=== PATIENT | female | born 1985 | race Caucasian/White ===

== ENCOUNTER → 2020-12-01 | Outpatient (CLI) | payer OTHER ==
--- NOTE | 2020-12-07 08:47 | ECWPNPC ---
PATIENT NAME: MICHELLE HSU : 1985 GENDER: FEMALE VISIT DATE: 12/01/2020 DISCHARGE DATE: 12/01/20 1406 VISIT LOCKED DATE TIME: PHYSICIAN: MARY JANSEN RESOURCE: MARY JANSEN REASON FOR APPOINTMENT 1. W/C SHOULDER/CRPS HISTORY OF PRESENT ILLNESS DEPRESSION SCREENING: PHQ-2 (2015 EDITION) LITTLE INTEREST OR PLEASURE IN DOING THINGS?NOT AT ALL FEELING DOWN, DEPRESSED, OR HOPELESS?NOT AT ALL TOTAL SCORE0 GENERAL: 35-YEAR-OLD FEMALE BEING REFERRED BY DR. PARKER, ORTHOPEDIC SURGERY FOR EVALUATION OF LEFT UPPER EXTREMITY COMPLEX REGIONAL PAIN SYNDROME STATUS POST LEFT SHOULDER INJURY AND SURGERY. THIS IS A WORK RELATED INJURY. PATIENT WAS WALKING DOWN STEPS AN EMPLOYEE AT [employer] ON April AND SLIPPED CATCHING HERSELF WITH HER LEFT ARM ON THE RAILING. PATIENT HAS BEEN EXPERIENCING CONSTANT BURNING STABBING AND SHOOTING PAIN IN THE LEFT ARM AND SHOULDER SINCE INJURY. REPORTS NO IMPROVEMENT POST SURGERY. SHE IS RIGHT HAND DOMINANT. REPORTS SIGNIFICANT REDUCTION IN ABILITY TO DO ACTIVITIES OF DAILY LIVING WITH HER FAMILY AND ROUTINE CHORES AROUND THE HOUSE. SHE IS DEPRESSED AND WEEPY TODAY DUE TO HER POOR ACTIVITY TOLERANCE DUE TO SEVERE UNCONTROLLED PAIN. FINDS CURRENT MEDICATION MINIMALLY EFFECTIVE. CONTINUES WITH PHYSICAL THERAPY THAT SHE BEGAN 4 WEEKS AFTER SURGERY. REPORTS HYPERSENSITIVITY TO LIGHT TOUCH OVER HER LEFT ARM. REPORTS SWELLING IN HER HANDS AND REPORTS THAT LEFT HAND IS VERY COLD FREQUENTLY EVEN DESPITE ATTEMPTS TO WARM IT UP. REPORTS SKIN COLOR CHANGES OVER HER LEFT ARM PERIODICALLY.- -. FALL RISK SCREENING: SCREENING : NO FALLS REPORTED IN THE LAST YEAR , : NO FALLS REPORTED IN THE LAST YEAR. PAIN SCREENING: PATIENT HAS A COMPLAINT OF ACUTE OR CHRONIC PAIN :YES LOCATION OF PAIN:LEFT SHOULDER INTENSITY OF PAIN (SCALE OF 1 TO 10):8 WHAT DOES YOUR PAIN FEEL LIKE:BURNING, STABBING, SHOOTING DURATION:CONTINOUS, CONSTANT, ALL DAY PAIN IS INCREASED BY:OTHERS DOES MATTER WHAT SHE DOES IT HURTS PAIN IS DECREASED BY:OTHERS HEAT NURSING NOTE: - - -. PAIN CENTER INTAKE QUESTIONS: DO YOU HAVE A HISTORY OF MRSA? :NO DO YOU TAKE A BLOOD THINNERS? :NO DO YOU HAVE ANY BLEEDING DISORDERS? :NO ANY NEW NUMBNESS OR WEAKNESS IN YOUR LEGS OR ARMS? :YES LEFT HAND HAS NUMBNESS ANY PACEMAKER,DEFIBRILLATOR, OR DORSAL COLUMN STIMULATOR? :NO DO YOU HAVE ANY RASHES OR OPEN SORES? :NO ARE YOU ALLERGIC TO IV DYE? :NO ARE YOU DIABETIC? :NO ANY NEW PROBLEMS WITH YOUR MEDICATIONS? :NO HAVE YOU RECEIVED A VACCINE IN THE PAST 30 DAYS? :NO DO YOU PLAN TO RECEIVE A VACCINE IN THE NEXT 21 DAYS? :NO DO YOU NEED ANY PRESCRIPTION? :NO DO YOU TAKE ANY IMMUNOSUPPRESSIVE MEDICATIONS? :NO CURRENT MEDICATIONS TAKING LEXAPRO 5 MG TABLET 1 TABLET ORALLY ONCE A DAY TAKING BACLOFEN 20 MG TABLET 1 TABLET ADMINISTER WITHOUT REGARDS TO MEALS NEEDED ORALLY TWICE A DAY TAKING GABAPENTIN 400 MG CAPSULE 1 CAPSULE ORALLY ONCE A DAY TAKING TRAMADOL HCL 50 MG TABLET 1 TABLET NEEDED ORALLY ONCE A DAY NOT-TAKING CELECOXIB 200 MG CAPSULE 1 CAPSULE WITH FOOD ORALLY ONCE A DAY NOT-TAKING MELOXICAM 15 MG TABLET 1 TABLET ORALLY ONCE A DAY NOT-TAKING LEXAPRO 5 MG TABLET 1 TABLET ORALLY ONCE A DAY NOT-TAKING OXYCODONE-ACETAMINOPHEN 5-325 MG TABLET 1 TABLET NEEDED ORALLY EVERY 6 HOURS PRN NOT-TAKING PERCOCET 5-325 MG TABLET 1 TABLET NEEDED ORALLY EVERY 6 HRS MEDICATION LIST REVIEWED AND RECONCILED WITH THE PATIENT PAST MEDICAL HISTORY HEADACHES CHRONIC SHOULDER PAIN ALLERGIES CELEBREX: NAUSEA/VOMITING SURGICAL HISTORY C SECTION 2009 C- SECTION 2014 TONSILECTOMY 2005 DNC 2008 NOSE DONE 2016 FAMILY HISTORY FATHER: ALIVE MOTHER: SIBLINGS: ALIVE SON(S): ALIVE DAUGHTER(S): ALIVE 7 BROTHER(S) , 6 SISTER(S) . 1 SON(S) , 1 DAUGHTER(S) - HEALTHY. 1 BOTHER W/BRAIN CANCER. SOCIAL HISTORY GENERAL: TOBACCO USE ARE YOU A:CURRENT SMOKER ARE YOU INTERESTED IN QUITTING?THINKING ABOUT QUITTING COUNSELED THE PATIENT ON SMOKING CESSATION, EDUCATION [id number]/01/2021 HOW MANY CIGARETTES A DAY DO YOU SMOKE?6-10 LATEX QUESTIONNAIRE LATEX ALLERGY : HAVE YOU EVER DEVELOPED ANY TYPE OF REACTION AFTER HANDLING LATEX PRODUCTS SUCH RUBBER GLOVES, CONDOMS, DIAPHRAGMS, BALLOONS, SOCKS, OR UNDERWEAR?NO LATEX ALLERGY : HAVE YOU EVER DEVELOPED ANY TYPE OF REACTION DURING OR AFTER DENTAL APPOINTMENT, VAGINAL/RECTAL EXAMINATION, SURGICAL PROCEDURE, OR ANY OTHER EXPOSURE?NO LATEX RISK : HAVE YOU EVER HAD ANY DIFFICULTY BREATHING OR HIVES AFTER EATING OR HANDLING ANY FRUITS, OR VEGETABLES; SUCH KIWI, BANANAS, STONE FRUITS, OR CHESTNUTSNO LATEX RISK : DO YOU HAVE A PREVIOUS PERSONAL HISTORY OF MORE THAN NINE SURGERIES, SPINA BIFIDA, OR REPEATED CATHERIZATIONS? NO LATEX RISK : ARE YOU FREQUENTLY EXPOSED TO LATEX PRODUCTS IN YOUR OCCUPATION?NO DATE ASKED : 12/01/2020 ALCOHOL USE: NO. RECREATIONAL DRUG USE DRUG USE?NO LANGUAGE LANGUAGES SPOKEN:ARMENIAN LEARNING BARRIERS / SPECIAL NEEDS CHANGE FROM LAST VISIT?NO BARRIERS TO LEARNING?NO HEARING IMPAIRED?NO VISION IMPAIRED?YES :CORRECTIVE LENSES COGNITIVELY IMPAIRED?NO READINESS TO LEARN?YES LEARNING PREFERENCES?YES :DEMONSTRATION/VERBAL INSTRUCTION LEARNING CAPABILITIES PRESENT?YES EMOTIONAL BARRIERS?NO SPECIAL DEVICES?NO RETAIL GENERAL MANAGER NEEDED?NO DOMESTIC VIOLENCE DO YOU FEEL SAFE IN YOUR ENVIRONMENT?YES MARITAL STATUS: . HOSPITALIZATION/MAJOR DIAGNOSTIC PROCEDURE CHILD REVIEW OF SYSTEMS CONSTITUTIONAL: ANY RECENT FEVER NO . CHILLS NO . WEIGHT CHANGE OF UNKNOWN REASONS NO . MUSCULOSKELETAL: ANY UNUSUAL JOINT PAIN OR SWELLING NOT MENTIONED NO . SYSTEMIC LUPUS NO . ANY NEUROMUSCULAR DISORDER NOT MENTIONED NO . LYME DISEASE NO . GASTROENTEROLOGY: ANY NEW CHANGE IN BOWEL CONTROL? NO . HISTORY OF LIVER DISORDER NOT MENTIONED NO . HISTORY OF UNUSUAL ABDOMINAL PAIN OR CRAMPING NOT MENTIONED NO . NO CONSTIPATION. GENITOURINARY: ANY NEW CHANGE IN BLADDER CONTROL? NO . ANY RENAL/KIDNEY CONDITON NOT MENTIONED NO . NEUROLOGY: HISTORY OF TBI NOT MENTIONED NO . OTHER NEW NUMBNESS OR PAIN PATTERNS NOT MENTIONED NO . NEW ONSET DIZZINESS OR NEUROLOGICAL CHANGES NOT MENTIONED NO . HISTORY OF SEVERE HEADACHES NOT MENTIONED NO . HISTORY OF STROKE OR NEUROLOGICAL DISORDER NOT MENTIONED NO . CARDIOLOGY: HEART SURGERY NO . CONGESTIVE HEART FAILURE/FLUID OVERLOAD NOT MENTIONED NO . HISTORY OF CHEST PAIN,IRREGULAR HEART BEAT NOT MENTIONED NO . RESPIRATORY: SHORTNESS OF BREATH ON EXERTION, WHEEZES, UNUSUAL COUGH NOT MENTIONED NO . ENDOCRINOLOGY: ADRENAL GLAND OR THYROID DISORDERS NOT MENTIONED NO . UNUSUAL URINATION, DIZZINESS OR LETHARGY NOT MENTIONED NO . VITAL SIGNS WT 156 LBS, HT 5'6, BMI 30.46 INDEX, BP 133/81 MM HG, HR 83 /MIN, RR 18 /MIN, TEMP 98.1 F, OXYGEN SAT % 97%, SAFE IN ENV? (Y/N) YEST.KIM ALEJANDRO. EXAMINATION GENERAL EXAMINATION: GENERALNO ACUTE DISTRESS, WELL NOURISHED AND HYDRATED. PSYCHWEEPY, FLAT AFFECT, DEPRESSED. NECK:NO LYMPHADENOPATHY, SUPPLE, NO THYROMEGALLY. LUNGS:CLEAR TO AUSCULTATION BILATERALLY, NO WHEEZES, RHONCHI, RALES. HEART:NO MURMURS, REGULAR RATE AND RHYTHM. ABDOMEN:SOFT, NON-TENDER, NO ORGANOMEGALY, BOWEL SOUNDS ARE NORMAL. MUSCULOSKELETAL:WEAK INFORMATION TECHNOLOGY SPECIALIST STRENGTH LEFT ARM . MOTOR STRENGTH LEFT ARM 3/5. WEAKNESS AGAINST RESISTANCE LEFT ARM AT LESS THAN 40. ABDUCTION LEFT ARM IS REDUCED TO 128. MARKED HYPERSENSITIVITY TO LIGHT TOUCH OVER LEFT UPPER EXTREMITY.. 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 EXTREMITY - G90.512 (PRIMARY) NEUROPATHIC PAIN OF LEFT SHOULDER - M79.2 TREATMENT NEUROPATHIC PAIN OF LEFT SHOULDER INCREASE BACLOFEN TABLET, 20 MG, 1 TABLET ADMINISTER WITHOUT REGARDS TO MEALS NEEDED, ORALLY, THREE TIMES A DAY, 30 DAYS, 90 TABLET, REFILLS 2 STOP TRAMADOL HCL TABLET, 50 MG, 1 TABLET NEEDED, ORALLY, ONCE A DAY INCREASE GABAPENTIN TABLET, 600 MG, 1 CAPSULE, ORALLY, 3X DAILY, 30 DAY(S), 90, REFILLS 2 START PERCOCET TABLET, 5-325 MG, 1 TABLET NEEDED, ORALLY, Q4-6HR PRN FOR SEVERE PAIN #45 TAB SHOULD LAST 30 DAYS, 30 DAYS, 45, REFILLS 0 NOTES: [facility] NARCOTIC AGREEMENT WAS REVIEWED AND SIGNED TODAY BY THE PATIENT. SEE ATTACHED DOCUMENT FOR FULL DETAILS; SPECIFIC ISSUES WERE REVIEWED: 1) KEEP PAIN MEDS IN THEIR ORIGINAL BOTTLES AND ANY WEEKLY PLANNERS ARE TO BE BROUGHT TO THE PAIN CENTER AT EVERY VISIT. 2) THE PATIENT IS NOT TO INCREASE DOSING OR TIMING OF THEIR PAIN MEDICATION WITHOUT SPECIFIC DIRECTION OF THEIR PAIN CENTERPROVIDER (NOT ER OR OTHER PROVIDERS). 3) ALL PAIN MEDS ARE TO BE KEPT SECURED, IN A LOCKED BOX. 4) NO PAIN MEDS ARE TO BE SHARED WITH ANY OTHER PERSON FOR ANY REASON. 5) NO PAIN MEDS MAY BE TAKEN FROM ANY FRIENDS OR RELATIVES FOR ANY REASON 6) NO MEDS OR SUBSTANCES WHICH ARE NOT LEGAL ARE TO BE USED- NO MARIJUANA, NO COCAINE, AMPHETAMINES, HEROIN, OR OTHERS ARE EVER TO BE USED. 7)URINE TESTING IS DONE TO ACCOUNT FOR MEDS AND SUBSTANCES BEING TAKEN AND WILL BE DONE RANDOMLY. , RISKS OF NARCOTIC/OPIOD MEDICATIONS INCLUDES BUT IS NOT LIMITED TO RISK OF DEPENDANCE/DEVELOPMENT OF ADDICTION, MOOD DISTURBANCE AND DEPRESSION, OSTEOPOROSIS, HORMONAL AND LABIDAL CHANGES, RESPIRATORY DEPRESSION AND . PATIENT IS ADVISED NOT TO DRIVE OR DRINK ALCOHOL WHILE ON THESE MEDICATIONS PRINTED NEW MEDICATION INFORMATION FOR PATIENT ROSIE ALEJANDRO. PROCEDURES PN WORKMANS' COMP OPINION IN YOUR OPINION, WAS THE INCIDENT THAT THE PATIENT DESCRIBED THE COMPETENT MEDICAL CAUSE OF THIS INJURY/ILLNESS? YES ARE THE PATIENT'S COMPLAINTS CONSISTENT WITH HIS/HER HISTORY OF THE INJURY/ILLNESS? YES IS THE PATIENT'S HISTORY OF THE INJURY/ILLNESS CONSISTENT WITH YOUR OBJECTIVE FINDING? YES WHAT IS THE PERCENTAGE OF TEMPORARY IMPAIRMENT? MODERATE TO MARKED = 66.7% IS THE PATIENT WORKING? NO DOCTOR ON SITE: LEXIE JEWELL MD PROCEDURE CODES FA211 ESTABILISHED PATIENT [facility] CHARGE DISPOSITION & COMMUNICATION FOLLOW UP DISCUSS INTERVENTIONAL OPTIONS,2 MONTH MED MGMNT W MARY/UTOX (REASON: WORKMANS COMP LEFT SHOULDER RSD) ELECTRONICALLY SIGNED BY CITLALLI STERLING ON 12/06/2020 AT 12:54 PM EDT DISCLAIMER : THIS IS A VISIT SUMMARY EXTRACTED FROM THE [employer] CHART. IT IS NOT A COPY OF THE [employer] PROGRESS NOTE. QUANG
== END ==
LOC: M PAIN 13:00
PROVIDERS: ATTEND Nurse Practitioner Family
DX: G90.512 Complex regional pain syndrome I of left upper limb (principal); M79.2 Neuralgia and neuritis, unspecified; R51.9 Headache, unspecified; F17.210 Nicotine dependence, cigarettes, uncomplicated; Z79.891 Long term (current) use of opiate analgesic; Z79.899 Other long term (current) drug therapy; Z88.8 Allergy status to other drugs, medicaments and biological substances

== ENCOUNTER → 2020-12-16 | Outpatient (CLI) | payer OTHER ==
--- NOTE | 2020-12-22 01:57 | ECWPNPC ---
PATIENT NAME: MICHELLE HSU : 1985 GENDER: FEMALE VISIT DATE: 12/16/2020 DISCHARGE DATE: 12/16/20 1537 VISIT LOCKED DATE TIME: PHYSICIAN: LEXIE SIDHU MD RESOURCE: LEXIE SIDHU MD REASON FOR APPOINTMENT 1. W/C DISCUSS TREATMENT OPTIONS - ALEXANDRA HERNANDEZ HISTORY OF PRESENT ILLNESS GENERAL: 35-YEAR-OLD FEMALE PATIENT WITH A HISTORY OF CHRONIC LEFT SHOULDER AND LEFT UPPER EXTREMITY PAIN. THE PATIENT DESCRIBES THE PAIN BURNING, STABBING AND CONSTANT WITH A PAIN SCORE RANGING FROM 6-10/10 OVER THE LEFT UPPER EXTREMITY. THE PATIENT SUFFERED A WORK RELATED INJURY IN 04/2019 WHEN SHE WAS WALKING DOWN THE STAIRS AND SHE FELL AND SHE TRIED TO CATCH HERSELF WITH HER LEFT ARM AND HER LEFT ARM WENT BACK AND SHE STRETCHED HER LEFT SHOULDER AND DEVELOPED AN INJURY OVER HER LEFT SHOULDER. SUBSEQUENTLY, SHE RECEIVED PHYSICAL THERAPY AND MEDICATION MANAGEMENT BUT THE PAIN PERSIST AND SHE ENDED UP HAVING A SURGERY IN 2019. UNFORTUNATELY, THE PAIN PERSIST AFTER THAT SURGERY. SHE HAS DIFFICULTLY PERFORMING ACTIVITIES SUCH CLEANING HER HOUSE, GROCERY SHOPPING AND DOING ANY TYPE OF ACTIVITIES. SHE BASICALLY SAYS THAT SHE CANNOT USE HER LEFT ARM. THE PATIENT IS NOT WORKING RIGHT NOW AND SHE IS LOOKING FOR ASSISTANCE. SHE IS USING MEDICATION MANAGEMENT AND THE PAIN IS STILL THERE AND SHE WANTS HELP. THE PATIENT REPORTS OVER THE LEFT AXILLA, SHE HAS NOTICED MORE SWELLING COMPARED TO THE RIGHT SIDE. THE PATIENT REPORTS COLOR CHANGES OVER THE LEFT SHOULDER AND THE LEFT WRIST AND LEFT HAND. THE PATIENT ALSO NOTICES TEMPERATURE CHANGES, FEELING THAT IT IS COLD ON OCCASIONS. SHE ALSO NOTICES THAT IT IS MORE SENSITIVE AND MORE PAINFUL. SHE REPORTS ALSO SOME SWELLING ON OCCASION ON THE LEFT WRIST AND LEFT HAND. SHE FEELS THAT HER NAILS ARE MORE BRITTLE. THE PATIENT REPORTS SOME MUSCLE SPASMS OVER THE LEFT UPPER EXTREMITY. FALL RISK SCREENING: SCREENING : NO FALLS REPORTED IN THE LAST YEAR. PAIN SCREENING: PATIENT HAS A COMPLAINT OF ACUTE OR CHRONIC PAIN :YES LOCATION OF PAIN: LEFT ARM INTENSITY OF PAIN (SCALE OF 1 TO 10):7 WHAT DOES YOUR PAIN FEEL LIKE:BURNING, STABBING DURATION:CONTINOUS, CONSTANT PAIN IS INCREASED BY:ACTIVITIES PAIN IS DECREASED BY:USE OF PAIN MEDICATIONS NURSING NOTE: -. PAIN CENTER INTAKE QUESTIONS: DO YOU HAVE A HISTORY OF MRSA? :NO DO YOU TAKE A BLOOD THINNERS? :NO DO YOU HAVE ANY BLEEDING DISORDERS? :NO ANY NEW NUMBNESS OR WEAKNESS IN YOUR LEGS OR ARMS? :YES LEFT UPPER ARM ANY PACEMAKER,DEFIBRILLATOR, OR DORSAL COLUMN STIMULATOR? :NO DO YOU HAVE ANY RASHES OR OPEN SORES? :NO ARE YOU ALLERGIC TO IV DYE? :NO ARE YOU DIABETIC? :NO ANY NEW PROBLEMS WITH YOUR MEDICATIONS? :NO HAVE YOU RECEIVED A VACCINE IN THE PAST 30 DAYS? :NO DO YOU PLAN TO RECEIVE A VACCINE IN THE NEXT 21 DAYS? :NO DO YOU NEED ANY PRESCRIPTION? :NO DO YOU TAKE ANY IMMUNOSUPPRESSIVE MEDICATIONS? :NO DO YOU HAVE ANY KIDNEY OR LIVER DISEASE? :NO IS THERE A CHANCE YOU COULD BE ? :NO ARE YOU BREAST FEEDING? :NO CURRENT MEDICATIONS TAKING BACLOFEN 20 MG TABLET 1 TABLET ADMINISTER WITHOUT REGARDS TO MEALS NEEDED ORALLY THREE TIMES A DAY TAKING GABAPENTIN 600 MG TABLET 1 CAPSULE ORALLY 3X DAILY TAKING PERCOCET 5-325 MG TABLET 1 TABLET NEEDED ORALLY Q4-6HR PRN FOR SEVERE PAIN #45 TAB SHOULD LAST 30 DAYS NOT-TAKING LEXAPRO 5 MG TABLET 1 TABLET ORALLY ONCE A DAY NOT-TAKING CELECOXIB 200 MG CAPSULE 1 CAPSULE WITH FOOD ORALLY ONCE A DAY NOT-TAKING MELOXICAM 15 MG TABLET 1 TABLET ORALLY ONCE A DAY NOT-TAKING LEXAPRO 5 MG TABLET 1 TABLET ORALLY ONCE A DAY NOT-TAKING OXYCODONE-ACETAMINOPHEN 5-325 MG TABLET 1 TABLET NEEDED ORALLY EVERY 6 HOURS PRN NOT-TAKING PERCOCET 5-325 MG TABLET 1 TABLET NEEDED ORALLY EVERY 6 HRS MEDICATION LIST REVIEWED AND RECONCILED WITH THE PATIENT PAST MEDICAL HISTORY HEADACHES CHRONIC SHOULDER PAIN ALLERGIES CELEBREX: NAUSEA/VOMITING SOCIAL HISTORY GENERAL: TOBACCO USE ARE YOU A:CURRENT SMOKER HOW MANY CIGARETTES A DAY DO YOU SMOKE?6-10 ARE YOU INTERESTED IN QUITTING?THINKING ABOUT QUITTING COUNSELED THE PATIENT ON SMOKING CESSATION, EDUCATION [id number]/01/2021 LATEX QUESTIONNAIRE LATEX ALLERGY : HAVE YOU EVER DEVELOPED ANY TYPE OF REACTION AFTER HANDLING LATEX PRODUCTS SUCH RUBBER GLOVES, CONDOMS, DIAPHRAGMS, BALLOONS, SOCKS, OR UNDERWEAR?NO LATEX ALLERGY : HAVE YOU EVER DEVELOPED ANY TYPE OF REACTION DURING OR AFTER DENTAL APPOINTMENT, VAGINAL/RECTAL EXAMINATION, SURGICAL PROCEDURE, OR ANY OTHER EXPOSURE?NO DATE ASKED : 12/01/2020 LATEX RISK : HAVE YOU EVER HAD ANY DIFFICULTY BREATHING OR HIVES AFTER EATING OR HANDLING ANY FRUITS, OR VEGETABLES; SUCH KIWI, BANANAS, STONE FRUITS, OR CHESTNUTSNO LATEX RISK : DO YOU HAVE A PREVIOUS PERSONAL HISTORY OF MORE THAN NINE SURGERIES, SPINA BIFIDA, OR REPEATED CATHERIZATIONS? NO LATEX RISK : ARE YOU FREQUENTLY EXPOSED TO LATEX PRODUCTS IN YOUR OCCUPATION?NO ALCOHOL USE: NO. RECREATIONAL DRUG USE DRUG USE?NO LANGUAGE LANGUAGES SPOKEN:ESTONIAN LEARNING BARRIERS / SPECIAL NEEDS CHANGE FROM LAST VISIT?NO BARRIERS TO LEARNING?NO HEARING IMPAIRED?NO VISION IMPAIRED?YES COGNITIVELY IMPAIRED?NO :CORRECTIVE LENSES READINESS TO LEARN?YES LEARNING PREFERENCES?YES :DEMONSTRATION/VERBAL INSTRUCTION LEARNING CAPABILITIES PRESENT?YES EMOTIONAL BARRIERS?NO SPECIAL DEVICES?NO CABLE FERRY OPERATOR NEEDED?NO DOMESTIC VIOLENCE DO YOU FEEL SAFE IN YOUR ENVIRONMENT?YES MARITAL STATUS: . REVIEW OF SYSTEMS CONSTITUTIONAL: ANY RECENT FEVER NO . CHILLS NO . WEIGHT CHANGE OF UNKNOWN REASONS NO . GASTROENTEROLOGY: NEW UNEXPLAINABLE CHANGES IN BOWEL CONTROL NO . CONSTIPATION NO . GENITOURINARY: ANY NEW CHANGE IN BLADDER CONTROL? NO . NEUROLOGY: NEW ONSET DIZZINESS OR NEUROLOGICAL CHANGES NOT MENTIONED NO . NEW NUMBNESS OR PAIN PATTERNS NOT MENTIONED AND PERTINENT TO TODAY'S VISIT NO . CARDIOLOGY: NEW CHEST PRESSURE NO . PATIENT DENIES NO . RESPIRATORY: UNEXPLAINABLE COUGH NO . NEW SHORTNESS OF BREATH NO . VITAL SIGNS WT 157.4 LBS, HT 5'6, BMI 30.74 INDEX, BP 142/89 MM HG, HR 80 /MIN, RR 18 /MIN, TEMP 98.0 F, OXYGEN SAT % 100%, SAFE IN ENV? (Y/N) Y, NA INITIALS AW 1335, REVIEWED BY: TONI. EXAMINATION GENERAL: THE PATIENT IS ALERT, ORIENTED TIMES THREE AND COOPERATIVE. LUNGS ARE CLEAR TO AUSCULTATION. HEART SHOWS REGULAR RHYTHM, NO MURMURS AND NO GALLOPS. THERE IS A SCAR IN THE ANTERIOR AREA OF THE SHOULDER THAT MEASURES 2 CM. THERE IS A SCAR IN THE BACK WELL THAT MEASURES 0.5 CM. THEY ARE TENDER TO TOUCH. THERE IS HYPERPATHIA. THE LEFT ARM APPEARS MORE BLUISH IN COLOR COMPARED TO THE RIGHT ARM. THERE IS MINIMAL SWELLING IN THE LEFT HAND COMPARED TO THE RIGHT SIDE THAT CAN BE OBSERVED IN THE CREASES OF THE PALMS. SOME TENDERNESS IN THE LEFT ELBOW AREA COMPARED TO THE RIGHT SIDE. MORE TENDERNESS IN THE LEFT SHOULDER AREA. THE PATIENT CAN ABDUCT THE RIGHT SHOULDER. SHE CAN ABDUCT THE LEFT TO THE SHOULDER LEVEL. THE PATIENT HAS REDUCTION IN STRENGTH IN THE LEFT ARM COMPARED TO THE RIGHT ONE ON FLEXION AND EXTENSION. HAND CHIPPER OPERATOR IS REDUCED ON THE LEFT COMPARED TO THE RIGHT SIDE. SHE IS HOLDING HER LEFT SHOULDER. THERE IS PRESENCE OF TRIGGER POINTS AND BANDS OF TISSUE IN THE LEFT SHOULDER WITH RESTRICTION OF MOVEMENT. WHEN I TOUCH THE PATIENT'S SKIN, SHE REPORTS, OVER THE LEFT SIDE A REDUCTION IN SENSATION COMPARED TO THE RIGHT SIDE. THE PATIENT CAN EXTEND AND FLEX THE NECK AT MULTIPLE LEVELS. USING THE GONIOMETER, SHE CAN ABDUCT TO 65, SHE CAN MOVE FORWARD AT THE LEFT SHOULDER TO 85 DEGREES. SHE CAN EXTEND BACK TO 20. 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 HSU. THE PATIENT'S ALTERNATIVES ARE, CONSIDER SOME TRIGGER POINT INJECTIONS IN THE LEFT SHOULDER TO HELP HER WITH THE MUSCULOSKELETAL COMPONENT TO THE LEFT SHOULDER, WE CAN ALSO CONSIDER A STELLATE GANGLION BLOCK FOR THE NEUROPATHY AND THE COMPLEX REGIONAL PAIN SYNDROME AND THE THIRD ALTERNATIVE IS A SPINAL COLUMN STIMULATOR TRIAL. THE PATIENT TOLD ME THAT SHE WOULD LIKE TO THINK ABOUT THESE ALTERNATIVES. SHE SEES A VALUE IN ALL OF THEM ESPECIALLY SINCE SHE IS NOT SLEEPING WELL AND SHE REALLY WANTS TO IMPROVE HER FUNCTION. WE WILL GIVE HER INFORMATION ABOUT ALL OF THESE MODALITIES. SHE WILL FOLLOW UP WITH THE NURSE PRACTITIONER AND SHE WILL LET THEM KNOW IF SHE WANTS TO PURSUE ANY OF THEM. I WILL TRY TO CONTACT ONE OF THE PATIENTS THAT I HAVE DONE STELLATE GANGLION BLOCKS ON TO SEE IF THAT PATIENT IS COMFORTABLE SPEAKING WITH MS. HSU TO EXPLAIN THE PROCEDURE AND WHAT TO EXPECT BASED ON HER EXPERIENCE. THE PATEINT WOULD LIKE TO PURSUE TALKING TO THIS OTHER PATIENT AND FEELS COMFORTABLE WITH US GIVING THE OTHER PATIENT HER INFORMATION. THE PATIENT REPORTS UNDERSTANDING AND AGREES WITH THE PLAN. . OTHERS NOTES: TRIGGER POINT INJECTIONS, TRIGGER POINT INJECTION HOME CARE, TRIGGER POINT INJECTION MATERIAL WAS PUBLISHED TO [employer],TRIGGER POINT INJECTION MATERIAL WAS PRINTED,TRIGGER POINT INJECTION HOME CARE MATERIAL WAS PRINTED,STELLATE GANGLION BLOCK MATERIAL WAS PUBLISHED TO [employer],SPINAL CORD STIMULATOR IMPLANT (TRIAL PROCEDURE), SPINAL CORD STIMULATOR IMPLANT MATERIAL WAS PUBLISHED TO [employer]. PROCEDURE CODES FA211 ESTABILISHED PATIENT [facility] CHARGE [address]17 OFFICE/OUTPATIENT VISIT EST DISPOSITION & COMMUNICATION FOLLOW UP FOLLOW UP WITH AIR VALVE MECHANIC (REASON: MEDICATION MANAGEMENT ) ELECTRONICALLY SIGNED BY LEXIE SIDHU MD, MD ON 12/21/2020 AT 04:54 PM EDT DISCLAIMER : THIS IS A VISIT SUMMARY EXTRACTED FROM THE [employer] CHART. IT IS NOT A COPY OF THE [employer] PROGRESS NOTE. QUANG
== END ==
LOC: M PAIN 13:45
PROVIDERS: ATTEND Anesthesiology
DX: M25.512 Pain in left shoulder (principal); G62.9 Polyneuropathy, unspecified; G90.512 Complex regional pain syndrome I of left upper limb; M79.18 Myalgia, other site; F17.210 Nicotine dependence, cigarettes, uncomplicated; Z88.8 Allergy status to other drugs, medicaments and biological substances; Z79.899 Other long term (current) drug therapy

== ENCOUNTER → 2020-12-30 | Outpatient (CLI) | payer OTHER | LOC: M LABSMTC 13:07 | PROVIDERS: ATTEND Anesthesiology | DX: Z20.822 Contact with and (suspected) exposure to COVID-19 (principal) ==

== ENCOUNTER → 2021-01-04 | Outpatient (CLI) | payer OTHER ==
[~2021-01-04] MED LIST: BUPIVACAINE HCL 0.25% 10ML VIAL As Ordered ONE; BUPIVACAINE HCL 0.25% 30ML VIAL As Ordered ONE; TRIAMCINOLONE ACETONIDE SUSP 40 MG/ML VIAL (J3301) As Ordered ONE; diazePAM 5MG TABLET As Ordered ONE; oxyCODONE 5MG TAB As Ordered ONE
--- NOTE | 2021-01-11 01:02 | ECWPNPC ---
PATIENT NAME: MICHELLE HSU : 1985 GENDER: FEMALE VISIT DATE: 01/04/2021 DISCHARGE DATE: 01/04/21 1100 VISIT LOCKED DATE TIME: PHYSICIAN: LEXIE SIDHU MD RESOURCE: LEXIE SIDHU MD REASON FOR APPOINTMENT 1. TRIGGER POINT INJECTIONS LEFT SHOULDER HISTORY OF PRESENT ILLNESS GENERAL: -. FALL RISK SCREENING: SCREENING : NO FALLS REPORTED IN THE LAST YEAR. PAIN SCREENING: PATIENT HAS A COMPLAINT OF ACUTE OR CHRONIC PAIN :YES LOCATION OF PAIN: LEFT ARM INTENSITY OF PAIN (SCALE OF 1 TO 10):9 WHAT DOES YOUR PAIN FEEL LIKE:BURNING, STABBING DURATION:CONTINOUS, CONSTANT, AWAKENS FROM SLEEP PATIENT REPORTS MUTLIPLE SPASMS, "LOCKS UP" PAIN IS INCREASED BY:ACTIVITIES PAIN IS DECREASED BY:USE OF PAIN MEDICATIONS PAIN HAS INTERFERED WITH THE FOLLOWING: INTERFERES WITH ADLS PLAN/GOALS/TREATMENT/INTERVENTION/FOLLOW UP:SEE PLAN NURSING NOTE: -. PAIN CENTER INTAKE QUESTIONS: DO YOU HAVE A HISTORY OF MRSA? :NO DO YOU TAKE A BLOOD THINNERS? :NO DO YOU HAVE ANY BLEEDING DISORDERS? :NO ANY NEW NUMBNESS OR WEAKNESS IN YOUR LEGS OR ARMS? :YES LEFT UPPER ARM ANY PACEMAKER,DEFIBRILLATOR, OR DORSAL COLUMN STIMULATOR? :NO DO YOU HAVE ANY RASHES OR OPEN SORES? :NO ARE YOU ALLERGIC TO IV DYE? :NO ARE YOU DIABETIC? :NO ANY NEW PROBLEMS WITH YOUR MEDICATIONS? :NO HAVE YOU RECEIVED A VACCINE IN THE PAST 30 DAYS? :NO DO YOU PLAN TO RECEIVE A VACCINE IN THE NEXT 21 DAYS? :NO DO YOU TAKE ANY IMMUNOSUPPRESSIVE MEDICATIONS? :NO ANY HISTORY OF SEIZURES? :NO ANY HISTORY OF CARDIAC ISSUES OR EVENTS? :NO DO YOU HAVE ANY KIDNEY OR LIVER DISEASE? :NO DO YOU HAVE SLEEP APNEA? :NO ANY RECENT HEAD INJURY? :NO DO YOU HAVE ANY NEW INFECTIONS? :NO IS THERE A CHANCE YOU COULD BE ? :NO ARE YOU BREAST FEEDING? :NO WHEN DID YOU LAST EAT? : 01/03/21 1800 WHEN DID YOU LAST DRINK? : 0615 WHAT DID YOU LAST DRINK? : COFFEE W/ CREAM/SUGAR - DR. SIDHU NOTIFIED, OK TO PROCEED TO SCHEDULED PROCEDURE. NAME OF PERSON DRIVING YOU HOME? : DAPHNEY (SO) DO YOU HAVE ANY OTHER QUESTIONS OR CONCERNS? : NO CURRENT MEDICATIONS TAKING BACLOFEN 20 MG TABLET 1 TABLET ADMINISTER WITHOUT REGARDS TO MEALS NEEDED ORALLY THREE TIMES A DAY, NOTES: 0530 TAKING GABAPENTIN 600 MG TABLET 1 CAPSULE ORALLY 3X DAILY, NOTES: 0530 TAKING PERCOCET 5-325 MG TABLET 1 TABLET NEEDED ORALLY Q4-6HR PRN FOR SEVERE PAIN #45 TAB SHOULD LAST 30 DAYS, NOTES: 01/03/21 1600 NOT-TAKING LEXAPRO 5 MG TABLET 1 TABLET ORALLY ONCE A DAY NOT-TAKING CELECOXIB 200 MG CAPSULE 1 CAPSULE WITH FOOD ORALLY ONCE A DAY NOT-TAKING MELOXICAM 15 MG TABLET 1 TABLET ORALLY ONCE A DAY NOT-TAKING LEXAPRO 5 MG TABLET 1 TABLET ORALLY ONCE A DAY NOT-TAKING OXYCODONE-ACETAMINOPHEN 5-325 MG TABLET 1 TABLET NEEDED ORALLY EVERY 6 HOURS PRN NOT-TAKING PERCOCET 5-325 MG TABLET 1 TABLET NEEDED ORALLY EVERY 6 HRS MEDICATION LIST REVIEWED AND RECONCILED WITH THE PATIENT PAST MEDICAL HISTORY HEADACHES CHRONIC SHOULDER PAIN ALLERGIES CELEBREX: NAUSEA/VOMITING - SIDE EFFECTS - ONSET DATE 01/02/2021 SOCIAL HISTORY GENERAL: TOBACCO USE ARE YOU A:CURRENT SMOKER ARE YOU INTERESTED IN QUITTING?THINKING ABOUT QUITTING COUNSELED THE PATIENT ON SMOKING CESSATION, EDUCATION [id number]/03/2021 HOW MANY CIGARETTES A DAY DO YOU SMOKE?6-10 PATIENT COUNSELED ON THE DANGERS OF TOBACCO USE AND URGED TO QUIT:01/02/2021 VAPORNO E-CIGARETTENO LATEX QUESTIONNAIRE LATEX ALLERGY : HAVE YOU EVER DEVELOPED ANY TYPE OF REACTION AFTER HANDLING LATEX PRODUCTS SUCH RUBBER GLOVES, CONDOMS, DIAPHRAGMS, BALLOONS, SOCKS, OR UNDERWEAR?NO LATEX ALLERGY : HAVE YOU EVER DEVELOPED ANY TYPE OF REACTION DURING OR AFTER DENTAL APPOINTMENT, VAGINAL/RECTAL EXAMINATION, SURGICAL PROCEDURE, OR ANY OTHER EXPOSURE?NO LATEX RISK : HAVE YOU EVER HAD ANY DIFFICULTY BREATHING OR HIVES AFTER EATING OR HANDLING ANY FRUITS, OR VEGETABLES; SUCH KIWI, BANANAS, STONE FRUITS, OR CHESTNUTSNO LATEX RISK : DO YOU HAVE A PREVIOUS PERSONAL HISTORY OF MORE THAN NINE SURGERIES, SPINA BIFIDA, OR REPEATED CATHERIZATIONS? NO LATEX RISK : ARE YOU FREQUENTLY EXPOSED TO LATEX PRODUCTS IN YOUR OCCUPATION?NO DATE ASKED : 01/02/2021 ALCOHOL USE: NO. RECREATIONAL DRUG USE DRUG USE?NO SABIANIST SABIANIST NO CONFUCIANIST BELIEFS THAT WOULD IMPACT HEALTH CARE. LANGUAGE LANGUAGES SPOKEN:YORUBA LEARNING BARRIERS / SPECIAL NEEDS CHANGE FROM LAST VISIT?NO BARRIERS TO LEARNING?NO HEARING IMPAIRED?NO VISION IMPAIRED?YES :CORRECTIVE LENSES COGNITIVELY IMPAIRED?NO READINESS TO LEARN?YES LEARNING PREFERENCES?YES :DEMONSTRATION/VERBAL INSTRUCTION LEARNING CAPABILITIES PRESENT?YES EMOTIONAL BARRIERS?NO SPECIAL DEVICES?NO ABSORBER OPERATOR NEEDED?NO DOMESTIC VIOLENCE DO YOU FEEL SAFE IN YOUR ENVIRONMENT?YES MARITAL STATUS: . VITAL SIGNS WT 157.6 LBS, HT 5'6, BMI 30.78 INDEX, BP 125/73 MM HG, HR 66 /MIN, RR 18 /MIN, TEMP 98.0 F, OXYGEN SAT % 97%, SAFE IN ENV? (Y/N) YES, NA INITIALS AW 0853, REVIEWED BY: Abby PELAYO RN. EXAMINATION GENERAL: THE PATIENT IS ALERT, ORIENTED TIMES THREE AND COOPERATIVE. LUNGS ARE CLEAR TO AUSCULTATION. HEART SHOWS REGULAR RHYTHM, NO MURMURS AND NO GALLOPS. ASSESSMENTS MYALGIA - M79.10 (PRIMARY) TREATMENT MYALGIA MEDICATION: VALIUM TAB 5MG ORALLY (DIAZEPAM)ANDREEA SALDANA 01/04/2021 9:47:11 AM > VERIFIED DONNA PELAYO 01/04/2021 9:49:57 AM > ADMINISTERED. MEDICATION: OXYCODONE HCL TAB 5MG ORALLY ANDREEA SALDANA 01/04/2021 9:47:28 AM > VERIFIED DONNA PELAYO 01/04/2021 9:50:17 AM > ADMINISTERED. COMPLETION OF PROCEDURAL VISIT WHEN MEETS CRITERIASYDONNA PADGETT 01/04/2021 11:01:02 AM > CRITERIA MET. OTHERS NOTES: 01/02/21 1300 PAT COMPLETED. Jose DUARTE RN BSN . PROCEDURES PAIN NURSING RECORD PROCEDURE IN ROOM 0840, PHYSICIAN IN ROOM 1032, START 1037, FINISH 1041, PHYSICIAN OUT OF ROOM 1042, OUT OF ROOM 1101, ECG N/A, PATIENT SHIELDED N/A, SAFETY STRAP N/A, PREP ALCOHOL DR. SIDHU, DRESSING TEGADERM Abby PELAYO RN LOC: DONNA PELAYO 01/04/2021 10:38:01 AM > , 1. ALERT, ORIENTED RESP: DONNA PELAYO 01/04/2021 10:38:05 AM > , 1. REGULAR, NO DYSPNEA COLOR: DONNA PELAYO 01/04/2021 10:38:08 AM > , 1. PINK SKIN: DONNA PELAYO 01/04/2021 10:38:13 AM > , 1. WARM, DRY POSITION: DONNA PELAYO 01/04/2021 10:38:17 AM > , 5. SITTING VITALS: DONNA PELAYO 01/04/2021 10:57:12 AM > 126/81, 75, 18, 95% COMPLETION OF PROCEDURE APPOINTMENT: POST PAIN 6, DRESSING SITE DRY AND INTACT, IV N/A, GAIT STEADY, TEACHING COMPLETED, PATIENT ACKNOWLEDGES UNDERSTANDING YES, PROCEDURE APPOINTMENT COMPLETED AT 1101 BY: Abby PELAYO RN PN WORKMANS' COMP OPINION IN YOUR OPINION, WAS THE INCIDENT THAT THE PATIENT DESCRIBED THE COMPETENT MEDICAL CAUSE OF THIS INJURY/ILLNESS? YES ARE THE PATIENT'S COMPLAINTS CONSISTENT WITH HIS/HER HISTORY OF THE INJURY/ILLNESS? YES IS THE PATIENT'S HISTORY OF THE INJURY/ILLNESS CONSISTENT WITH YOUR OBJECTIVE FINDING? YES WHAT IS THE PERCENTAGE OF TEMPORARY IMPAIRMENT? MODERATE TO MARKED = 66.7% IS THE PATIENT WORKING? NO DOCTOR ON SITE: MD GRAEME KNOWLES TRIGGER POINT INJECTION WITH STEROIDS PRE PROCEDURE DIAGNOSIS 1. MYALGIA 2. PAIN AT LEFT SHOULDER AREA POST PROCEDURE DIAGNOSIS 1. MYALGIA 2. PAIN AT LEFT SHOULDER AREA PROCEDURE TRIGGER POINT INJECTION AT LEFT SHOULDER AREA SURGEON DR. LEXIE SIDHU SAMPLE EXAMINER NONE ANESTHESIA LOCAL PRE PROCEDURE NOTE THE PATIENT HAS A HISTORY OF CHRONIC PAIN AT THE LEFT SHOULDER AREA. I EVALUATED THE PATIENT AND REVIEWED THE CHART. THERE IS EVIDENCE OF BANDS OF TISSUE WITH RESTRICTION OF MOVEMENT AND PRESENCE OF TRIGGER POINT AT THE LEFT SHOULDER AREA. I WENT OVER THE RISKS, ALTERNATIVES, AND BENEFITS ASSOCIATED WITH THIS PROCEDURE. THE PATIENT WOULD LIKE TO PROCEED AND GIVE CONSENT TO PERFORMED THE PROCEDURE. THE PATIENT DENIES UNEXPLAINABLE WEIGHT LOSS, FEVER, CHILLS, OR NEW CHANGES IN URINARY OR BOWEL CONTROL. THE PATIENT IS COVID-19 NEGATIVE DESCRIPTION OF PROCEDURE THE PATIENT WAS BROUGHT TO THE PROCEDURE ROOM AND PLACED IN THE SITTING POSITION. THE AREA WAS CLEANED WITH ALCOHOL. THE PROCEDURE WAS DONE USING ASEPTIC STERILE TECHNIQUE. A TIMEOUT WAS PERFORMED WHERE THE CONSENTED SITE WAS VERIFIED WITH EVERYONE IN THE ROOM. USING A 25-GAUGE NEEDLE, TRIGGER POINTS WERE INJECTED AT THE LEFT SHOULDER AREA WITH A TOTAL OF 40 ML OF BUPIVACAINE 0.25% AND KENALOG 40 MG. THE MEDICATIONS WERE VERIFIED WITH THE NURSE. THERE WAS NO EVIDENCE OF BLOOD OR PARESTHESIA DURING THE PROCEDURE. THE PATIENT WAS SENT TO THE RECOVERY ROOM. THE PATIENT WAS MOVING THE EXTREMITIES AND DOING WELL. THERE WERE NO COMPLICATIONS DURING THE PROCEDURE. ESTIMATED BLOOD LOSS WAS LESS THAN 5 ML POST PROCEDURE NOTE THE PROCEDURE DONE WAS DISCUSSED WITH THE PATIENT. THE PATIENT WILL BE SEEN IN A FOLLOW UP IN THE NEXT FEW WEEKS. I AM LOOKING FOR LONG LASTING PAIN RELIEF FOR THE PATIENT WITH THIS INTERVENTION. INSTRUCTIONS WERE GIVEN, QUESTIONS WERE ANSWERED, AND THE PATIENT EXPRESSED UNDERSTANDING AND AGREES WITH THE PLAN. I, JAMEE PRYOR, DOCUMENTED THE ABOVE INFORMATION ACTING A SCRIBE FOR DR. SIDHU. I HAVE REVIEWED THE ABOVE DOCUMENT, WRITTEN BY JAMEE PRYOR, MEDICAL LABORATORY TECHNOLOGIST, AND I VERIFY THAT IT IS ACCURATE PROCEDURE CODES 12287 INJ TRIGGER POINT / MUSCL DISPOSITION & COMMUNICATION FOLLOW UP FOLLOW UP WITH POSTAL SORTING OFFICER (REASON: POST TRIGGER POINT INJECTION LEFT SHOULDER) ELECTRONICALLY SIGNED BY LEXIE SIDHU MD, ON 01/10/2021 AT 12:37 PM EDT DISCLAIMER : THIS IS A VISIT SUMMARY EXTRACTED FROM THE [employer] CHART. IT IS NOT A COPY OF THE [employer] PROGRESS NOTE. QUANG
== END ==
LOC: M PAIN 08:30
PROVIDERS: ATTEND Anesthesiology
DX: M79.10 Myalgia, unspecified site (principal); F17.210 Nicotine dependence, cigarettes, uncomplicated; Z88.8 Allergy status to other drugs, medicaments and biological substances; Z79.899 Other long term (current) drug therapy
CPT/HCPCS: 20552; J3301

== ENCOUNTER → 2021-01-31 | Outpatient (CLI) | payer OTHER ==
--- NOTE | 2021-02-01 04:27 | ECWPNPC ---
PATIENT NAME: MICHELLE HSU : 1985 GENDER: FEMALE VISIT DATE: 01/31/2021 DISCHARGE DATE: 01/31/21 1455 VISIT LOCKED DATE TIME: PHYSICIAN: MARY JANSEN RESOURCE: MARY JANSEN REASON FOR APPOINTMENT 1. WORKMANS COMP LEFT SHOULDER RSD/POST TRIGGER POINT INJECTIONS TO LEFT SHOULDER HISTORY OF PRESENT ILLNESS GENERAL: MICHELLE IS BEING SEEN FOR POST PROCEDURE FOLLOW-UP. HAD TRIGGER POINT INJECTIONS TO LEFT SHOULDER AT HER LAST VISIT. REPORTING NO IMPROVEMENT IN PAIN POST PROCEDURE. THIS IS A WORK RELATED INJURY. CONTINUES WITH SIGNIFICANT DISABILITY IN THE USE OF HER LEFT ARM. DR. SIDHU HAD DISCUSSED TRYING STELLATE GANGLION BLOCK. POTENTIAL RISKS AND BENEFITS WERE REVIEWED WITH PATIENT AGAIN TODAY. FINDING MEDICATION SOMEWHAT HELPFUL AT REDUCING PAIN AND KEEPING HER SOMEWHAT FUNCTIONAL. -. FALL RISK SCREENING: SCREENING : NO FALLS REPORTED IN THE LAST YEAR. PAIN SCREENING: PATIENT HAS A COMPLAINT OF ACUTE OR CHRONIC PAIN :YES LOCATION OF PAIN:LEFT SHOULDER INTENSITY OF PAIN (SCALE OF 1 TO 10):8 WHAT DOES YOUR PAIN FEEL LIKE:BURNING, STABBING, SHOOTING DURATION:CONTINOUS, CONSTANT, ALL DAY PAIN IS INCREASED BY:ACTIVITIES PAIN IS DECREASED BY:OTHERS HEAT NURSING NOTE: -. PAIN CENTER INTAKE QUESTIONS: DO YOU HAVE A HISTORY OF MRSA? :NO DO YOU TAKE A BLOOD THINNERS? :NO DO YOU HAVE ANY BLEEDING DISORDERS? :NO ANY NEW NUMBNESS OR WEAKNESS IN YOUR LEGS OR ARMS? :YES LEFT HAND HAS NUMBNESS ANY PACEMAKER,DEFIBRILLATOR, OR DORSAL COLUMN STIMULATOR? :NO DO YOU HAVE ANY RASHES OR OPEN SORES? :NO ARE YOU ALLERGIC TO IV DYE? :NO ARE YOU DIABETIC? :NO ANY NEW PROBLEMS WITH YOUR MEDICATIONS? :NO HAVE YOU RECEIVED A VACCINE IN THE PAST 30 DAYS? :NO DO YOU PLAN TO RECEIVE A VACCINE IN THE NEXT 21 DAYS? :NO DO YOU NEED ANY PRESCRIPTION? :NO DO YOU TAKE ANY IMMUNOSUPPRESSIVE MEDICATIONS? :NO CURRENT MEDICATIONS TAKING BACLOFEN 20 MG TABLET 1 TABLET ADMINISTER WITHOUT REGARDS TO MEALS NEEDED ORALLY THREE TIMES A DAY TAKING GABAPENTIN 600 MG TABLET 1 CAPSULE ORALLY 3X DAILY TAKING PERCOCET 5-325 MG TABLET 1 TABLET NEEDED ORALLY Q4-6HR PRN FOR SEVERE PAIN #45 TAB SHOULD LAST 30 DAYS NOT-TAKING LEXAPRO 5 MG TABLET 1 TABLET ORALLY ONCE A DAY NOT-TAKING CELECOXIB 200 MG CAPSULE 1 CAPSULE WITH FOOD ORALLY ONCE A DAY NOT-TAKING MELOXICAM 15 MG TABLET 1 TABLET ORALLY ONCE A DAY NOT-TAKING LEXAPRO 5 MG TABLET 1 TABLET ORALLY ONCE A DAY NOT-TAKING OXYCODONE-ACETAMINOPHEN 5-325 MG TABLET 1 TABLET NEEDED ORALLY EVERY 6 HOURS PRN NOT-TAKING PERCOCET 5-325 MG TABLET 1 TABLET NEEDED ORALLY EVERY 6 HRS MEDICATION LIST REVIEWED AND RECONCILED WITH THE PATIENT PAST MEDICAL HISTORY HEADACHES CHRONIC SHOULDER PAIN ALLERGIES CELEBREX: NAUSEA/VOMITING - SIDE EFFECTS - ONSET DATE 01/02/2021 SOCIAL HISTORY GENERAL: TOBACCO USE ARE YOU A:CURRENT SMOKER ARE YOU INTERESTED IN QUITTING?THINKING ABOUT QUITTING COUNSELED THE PATIENT ON SMOKING CESSATION, EDUCATION [id number]/01/2021 HOW MANY CIGARETTES A DAY DO YOU SMOKE?6-10 PATIENT COUNSELED ON THE DANGERS OF TOBACCO USE AND URGED TO QUIT:01/02/2021 VAPORNO E-CIGARETTENO LATEX QUESTIONNAIRE LATEX ALLERGY : HAVE YOU EVER DEVELOPED ANY TYPE OF REACTION AFTER HANDLING LATEX PRODUCTS SUCH RUBBER GLOVES, CONDOMS, DIAPHRAGMS, BALLOONS, SOCKS, OR UNDERWEAR?NO LATEX ALLERGY : HAVE YOU EVER DEVELOPED ANY TYPE OF REACTION DURING OR AFTER DENTAL APPOINTMENT, VAGINAL/RECTAL EXAMINATION, SURGICAL PROCEDURE, OR ANY OTHER EXPOSURE?NO LATEX RISK : HAVE YOU EVER HAD ANY DIFFICULTY BREATHING OR HIVES AFTER EATING OR HANDLING ANY FRUITS, OR VEGETABLES; SUCH KIWI, BANANAS, STONE FRUITS, OR CHESTNUTSNO LATEX RISK : DO YOU HAVE A PREVIOUS PERSONAL HISTORY OF MORE THAN NINE SURGERIES, SPINA BIFIDA, OR REPEATED CATHERIZATIONS? NO LATEX RISK : ARE YOU FREQUENTLY EXPOSED TO LATEX PRODUCTS IN YOUR OCCUPATION?NO DATE ASKED : 01/31/2021 ALCOHOL USE: NO. RECREATIONAL DRUG USE DRUG USE?NO RELIGIOUS RELIGIOUS NO AMISH BELIEFS THAT WOULD IMPACT HEALTH CARE. LANGUAGE LANGUAGES SPOKEN:SLOVENIAN LEARNING BARRIERS / SPECIAL NEEDS CHANGE FROM LAST VISIT?NO BARRIERS TO LEARNING?NO HEARING IMPAIRED?NO VISION IMPAIRED?YES :CORRECTIVE LENSES COGNITIVELY IMPAIRED?NO READINESS TO LEARN?YES LEARNING PREFERENCES?YES :DEMONSTRATION/VERBAL INSTRUCTION LEARNING CAPABILITIES PRESENT?YES EMOTIONAL BARRIERS?NO SPECIAL DEVICES?NO VETERINARY SURGERY TECHNICIAN NEEDED?NO DOMESTIC VIOLENCE DO YOU FEEL SAFE IN YOUR ENVIRONMENT?YES MARITAL STATUS: . REVIEW OF SYSTEMS CONSTITUTIONAL: ANY RECENT FEVER NO . CHILLS NO . WEIGHT CHANGE OF UNKNOWN REASONS NO . GASTROENTEROLOGY: NEW UNEXPLAINABLE CHANGES IN BOWEL CONTROL NO . CONSTIPATION NO . GENITOURINARY: ANY NEW CHANGE IN BLADDER CONTROL? NO . NEUROLOGY: NEW ONSET DIZZINESS OR NEUROLOGICAL CHANGES NOT MENTIONED NO . NEW NUMBNESS OR PAIN PATTERNS NOT MENTIONED AND PERTINENT TO TODAY'S VISIT NO . CARDIOLOGY: NEW CHEST PRESSURE NO . PATIENT DENIES NO . RESPIRATORY: UNEXPLAINABLE COUGH NO . NEW SHORTNESS OF BREATH NO . VITAL SIGNS WT 154 LBS, HT 5'6, BMI 30.07 INDEX, BP 140/75 MM HG, HR 85 /MIN, RR 18 /MIN, TEMP 98.6 F, OXYGEN SAT % 95%, SAFE IN ENV? (Y/N) YES, NA INITIALS DE 14:22T.KIM MA. EXAMINATION GENERAL EXAMINATION: GENERALNO ACUTE DISTRESS, WELL NOURISHED AND HYDRATED. PSYCHWEEPY, FLAT AFFECT, DEPRESSED. NECK:NO LYMPHADENOPATHY, SUPPLE, NO THYROMEGALLY. LUNGS:CLEAR TO AUSCULTATION BILATERALLY, NO WHEEZES, RHONCHI, RALES. HEART:NO MURMURS, REGULAR RATE AND RHYTHM. ABDOMEN:SOFT, NON-TENDER, NO ORGANOMEGALY, BOWEL SOUNDS ARE NORMAL. MUSCULOSKELETAL:WEAK CLINICAL PRODUCT SPECIALIST STRENGTH LEFT ARM . MOTOR STRENGTH LEFT ARM 3/5. WEAKNESS AGAINST RESISTANCE LEFT ARM AT LESS THAN 40. ABDUCTION LEFT ARM IS REDUCED TO 128. MARKED HYPERSENSITIVITY TO LIGHT TOUCH OVER LEFT UPPER EXTREMITY.. 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 TREATMENT NEUROPATHIC PAIN OF LEFT SHOULDER CONTINUE BACLOFEN TABLET, 20 MG, 1 TABLET ADMINISTER WITHOUT REGARDS TO MEALS NEEDED, ORALLY, THREE TIMES A DAY CONTINUE GABAPENTIN TABLET, 600 MG, 1 CAPSULE, ORALLY, 3X DAILY STOP PERCOCET TABLET, 5-325 MG, 1 TABLET NEEDED, ORALLY, Q4-6HR PRN FOR SEVERE PAIN #45 TAB SHOULD LAST 30 DAYS, 30 DAYS, 45 START OXYCODONE-ACETAMINOPHEN TABLET, 5-325 MG, 1 TABLET NEEDED, ORALLY, Q8H PRN MDD3 #45 TAB SHOULD LAST 30 DAYS, 30 DAYS, 45 SALINE LOCK (ORDERED FOR 02/14/2021) MEDICATION: VALIUM TAB 5MG ORALLY (DIAZEPAM) (ORDERED FOR 02/14/2021) MEDICATION: OXYCODONE HCL TAB 5MG ORALLY (ORDERED FOR 02/14/2021) NOTES: STELLATE GANGLION BLOCK LEFT ARM REVIEWED PRE PROCEDURE INFORMATION, PATIENT VERBALIZED UNDERSTANDING ROSIE ALEJANDRO. OTHER CHRONIC PAIN PAIN PROCEDURE LOGDATE OF PROCEDURE1PROCEDURE:TRIGGER POINT INJECTION LEFT SHOULDERAMOUNT OF PRE SEDATEVALIUM 5MG, OXYCODONE 5MGRESULT:IMPROVEMENT POST PROCEDUREMARY JANSEN FNP 01/31/2021 9:52:44 PM > NO IMPROVEMENT POST TPI PROCEDURES PN WORKMANS' COMP OPINION IN YOUR OPINION, WAS THE INCIDENT THAT THE PATIENT DESCRIBED THE COMPETENT MEDICAL CAUSE OF THIS INJURY/ILLNESS? YES ARE THE PATIENT'S COMPLAINTS CONSISTENT WITH HIS/HER HISTORY OF THE INJURY/ILLNESS? YES IS THE PATIENT'S HISTORY OF THE INJURY/ILLNESS CONSISTENT WITH YOUR OBJECTIVE FINDING? YES WHAT IS THE PERCENTAGE OF TEMPORARY IMPAIRMENT? MODERATE TO MARKED = 66.7% IS THE PATIENT WORKING? NO DOCTOR ON SITE: LEXIE JEWELL MD PROCEDURE CODES [id number] ESTABILISHED PATIENT [facility] FACILITY CHARGE DISPOSITION & COMMUNICATION FOLLOW UP POST (REASON: STELLATE GANGLION BLOCK LEFT ARM) ELECTRONICALLY SIGNED BY CITLALLI STERLING ON 01/31/2021 AT 09:53 PM EDT DISCLAIMER : THIS IS A VISIT SUMMARY EXTRACTED FROM THE [employer] CHART. IT IS NOT A COPY OF THE [employer] PROGRESS NOTE. QUANG
== END ==
LOC: M PAIN 13:45
PROVIDERS: ATTEND Nurse Practitioner Family
DX: M79.2 Neuralgia and neuritis, unspecified (principal); G89.29 Other chronic pain; G90.512 Complex regional pain syndrome I of left upper limb; F17.210 Nicotine dependence, cigarettes, uncomplicated; Z88.8 Allergy status to other drugs, medicaments and biological substances; Z79.899 Other long term (current) drug therapy

== ENCOUNTER → 2021-03-31 | Outpatient (CLI) | payer OTHER ==
[~2021-03-31] MED LIST changes: +ALBU83IN; +BACL1TAB9; -BUPIVACAINE HCL 0.25% 10ML VIAL As Ordered ONE; -BUPIVACAINE HCL 0.25% 30ML VIAL As Ordered ONE; +GABA600T4; +OXYC1TAB23; -TRIAMCINOLONE ACETONIDE SUSP 40 MG/ML VIAL (J3301) As Ordered ONE; -diazePAM 5MG TABLET As Ordered ONE; -oxyCODONE 5MG TAB As Ordered ONE
== END ==
LOC: M PAIN 13:45
PROVIDERS: ATTEND Anesthesiology
DX: M25.512 Pain in left shoulder (principal); M79.2 Neuralgia and neuritis, unspecified; G89.29 Other chronic pain; F17.210 Nicotine dependence, cigarettes, uncomplicated; Z98.890 Other specified postprocedural states; Z88.8 Allergy status to other drugs, medicaments and biological substances; Z79.899 Other long term (current) drug therapy

== ENCOUNTER → 2021-05-31 | Outpatient (CLI) | payer OTHER | LOC: M PAIN 10:15 | PROVIDERS: ATTEND Anesthesiology | DX: M79.2 Neuralgia and neuritis, unspecified (principal); M25.512 Pain in left shoulder; F17.210 Nicotine dependence, cigarettes, uncomplicated; Z88.8 Allergy status to other drugs, medicaments and biological substances; Z79.899 Other long term (current) drug therapy ==

== ENCOUNTER → 2021-05-31 | Outpatient (CLI) | payer OTHER | LOC: M LABSMTC 11:39 | PROVIDERS: ATTEND Anesthesiology | DX: Z01.812 Encounter for preprocedural laboratory examination (principal); Z20.822 Contact with and (suspected) exposure to COVID-19 ==

== ENCOUNTER → 2021-07-19 | Outpatient (CLI) | payer OTHER | LOC: M PAIN 14:45 | PROVIDERS: ATTEND Anesthesiology | DX: M25.512 Pain in left shoulder (principal); M79.2 Neuralgia and neuritis, unspecified; R51.9 Headache, unspecified; F17.210 Nicotine dependence, cigarettes, uncomplicated; Z79.891 Long term (current) use of opiate analgesic; Z79.899 Other long term (current) drug therapy; Z88.8 Allergy status to other drugs, medicaments and biological substances ==

== ENCOUNTER → 2021-10-06 | Outpatient (CLI) | payer OTHER | LOC: M PAIN 09:15 | PROVIDERS: ATTEND Nurse Practitioner Family | DX: M25.512 Pain in left shoulder (principal); M79.2 Neuralgia and neuritis, unspecified; R51.9 Headache, unspecified; F17.210 Nicotine dependence, cigarettes, uncomplicated; Z79.891 Long term (current) use of opiate analgesic; Z79.899 Other long term (current) drug therapy; Z88.8 Allergy status to other drugs, medicaments and biological substances ==

== ENCOUNTER → 2021-11-03 | Outpatient (CLI) | payer OTHER | LOC: M PAIN 10:00 | PROVIDERS: ATTEND Nurse Practitioner Family | DX: M25.512 Pain in left shoulder (principal); G89.29 Other chronic pain; M79.2 Neuralgia and neuritis, unspecified; F17.210 Nicotine dependence, cigarettes, uncomplicated; Z88.8 Allergy status to other drugs, medicaments and biological substances; Z79.899 Other long term (current) drug therapy ==

== ENCOUNTER → 2021-11-30 | Outpatient (CLI) | payer OTHER ==
[~2021-11-30] MED LIST changes: -BACL1TAB9; +BACL1TAB9 PO; -GABA600T4; +GABA600T4 PO; -OXYC1TAB23; +OXYC1TAB23 PO
== END ==
LOC: M TMPAIN 14:30 → M PAIN 14:30
PROVIDERS: ATTEND Nurse Practitioner Family
DX: M25.512 Pain in left shoulder (principal); G89.29 Other chronic pain; M79.2 Neuralgia and neuritis, unspecified; F17.210 Nicotine dependence, cigarettes, uncomplicated; Z88.8 Allergy status to other drugs, medicaments and biological substances; Z79.899 Other long term (current) drug therapy

== ENCOUNTER → 2021-12-19 | Outpatient (CLI) | payer OTHER ==
[~2021-12-19] MED LIST changes: +IBUP-1022 PO
== END ==
LOC: M PAIN 10:45
PROVIDERS: ATTEND Anesthesiology
DX: M79.602 Pain in left arm (principal); M79.2 Neuralgia and neuritis, unspecified; G89.29 Other chronic pain; F17.210 Nicotine dependence, cigarettes, uncomplicated; Z88.8 Allergy status to other drugs, medicaments and biological substances; Z79.899 Other long term (current) drug therapy

== ENCOUNTER → 2021-12-26 | Outpatient (CLI) | payer OTHER | LOC: M PAIN 15:00 | PROVIDERS: ATTEND Anesthesiology | DX: M79.602 Pain in left arm (principal); M79.2 Neuralgia and neuritis, unspecified; R51.9 Headache, unspecified; M25.551 Pain in right hip; M25.552 Pain in left hip; F17.210 Nicotine dependence, cigarettes, uncomplicated; Z79.891 Long term (current) use of opiate analgesic; Z79.1 Long term (current) use of non-steroidal anti-inflammatories (NSAID); Z88.8 Allergy status to other drugs, medicaments and biological substances ==

== ENCOUNTER → 2022-01-24 | Outpatient (CLI) | payer OTHER | LOC: M PAIN 10:00 | PROVIDERS: ATTEND Anesthesiology | DX: M79.2 Neuralgia and neuritis, unspecified (principal); M25.512 Pain in left shoulder; G89.29 Other chronic pain; F17.210 Nicotine dependence, cigarettes, uncomplicated; Z88.8 Allergy status to other drugs, medicaments and biological substances; Z79.899 Other long term (current) drug therapy ==

== ENCOUNTER → 2022-02-08 | Outpatient (CLI) | payer OTHER ==
[~2022-02-08] MED LIST changes: +ALBU2.5V10; -ALBU83IN
== END ==
LOC: M TMPAIN 10:30 → M PAIN 10:30
PROVIDERS: ATTEND Anesthesiology
DX: G90.512 Complex regional pain syndrome I of left upper limb (principal); M79.2 Neuralgia and neuritis, unspecified; M79.605 Pain in left leg; G89.29 Other chronic pain; F17.210 Nicotine dependence, cigarettes, uncomplicated; Z88.8 Allergy status to other drugs, medicaments and biological substances; Z79.899 Other long term (current) drug therapy

== ENCOUNTER → 2022-04-27 | Outpatient (CLI) | payer OTHER | LOC: M PAIN 11:30 | PROVIDERS: ATTEND Anesthesiology | DX: G90.512 Complex regional pain syndrome I of left upper limb (principal); G89.29 Other chronic pain; M79.2 Neuralgia and neuritis, unspecified; M79.605 Pain in left leg; F17.210 Nicotine dependence, cigarettes, uncomplicated; Z88.8 Allergy status to other drugs, medicaments and biological substances; Z79.899 Other long term (current) drug therapy ==

== ENCOUNTER → 2022-07-18 | Outpatient (CLI) | payer OTHER | LOC: M PAIN 09:45 | PROVIDERS: ATTEND Anesthesiology | DX: G90.512 Complex regional pain syndrome I of left upper limb (principal); M79.2 Neuralgia and neuritis, unspecified; G89.29 Other chronic pain; M25.552 Pain in left hip; F17.210 Nicotine dependence, cigarettes, uncomplicated; Z88.8 Allergy status to other drugs, medicaments and biological substances; Z79.899 Other long term (current) drug therapy ==

== ENCOUNTER → 2022-10-03 | Outpatient (CLI) | payer OTHER | LOC: M PAIN 10:15 | PROVIDERS: ATTEND Anesthesiology | DX: G90.512 Complex regional pain syndrome I of left upper limb (principal); F17.210 Nicotine dependence, cigarettes, uncomplicated; Z88.8 Allergy status to other drugs, medicaments and biological substances; Z79.899 Other long term (current) drug therapy ==

== ENCOUNTER → 2022-12-05 | Outpatient (CLI) | payer OTHER | LOC: M PAIN 08:00 | PROVIDERS: ATTEND Anesthesiology | DX: G90.512 Complex regional pain syndrome I of left upper limb (principal); F17.210 Nicotine dependence, cigarettes, uncomplicated; Z88.8 Allergy status to other drugs, medicaments and biological substances; Z79.899 Other long term (current) drug therapy ==

== ENCOUNTER → 2023-02-01 | Outpatient (CLI) | payer OTHER | LOC: M PAIN 11:15 | PROVIDERS: ATTEND Nurse Practitioner Family | DX: G90.512 Complex regional pain syndrome I of left upper limb (principal); G89.29 Other chronic pain; F17.210 Nicotine dependence, cigarettes, uncomplicated; Z88.8 Allergy status to other drugs, medicaments and biological substances; Z79.899 Other long term (current) drug therapy ==

== ENCOUNTER → 2023-03-06 | Outpatient (CLI) | payer OTHER | LOC: M PAIN 10:45 → M TMPAIN 10:45 | PROVIDERS: ATTEND Anesthesiology | DX: M79.2 Neuralgia and neuritis, unspecified (principal); M25.512 Pain in left shoulder; G90.512 Complex regional pain syndrome I of left upper limb; M79.605 Pain in left leg; F17.210 Nicotine dependence, cigarettes, uncomplicated; Z88.8 Allergy status to other drugs, medicaments and biological substances ==

== ENCOUNTER → 2023-03-27 | Outpatient (REF) | LOC: M PLAIMG 14:31 | PROVIDERS: ATTEND Internal Medicine | DX: M25.551 Pain in right hip (principal) ==

== ENCOUNTER → 2023-04-10 | Outpatient (CLI) | payer OTHER | LOC: M PAIN 10:00 | PROVIDERS: ATTEND Anesthesiology | DX: G90.512 Complex regional pain syndrome I of left upper limb (principal); M25.512 Pain in left shoulder; G89.29 Other chronic pain; M79.605 Pain in left leg; M79.601 Pain in right arm; F17.210 Nicotine dependence, cigarettes, uncomplicated; Z88.8 Allergy status to other drugs, medicaments and biological substances; Z79.899 Other long term (current) drug therapy ==

== ENCOUNTER → 2023-05-14 | Outpatient (CLI) | payer OTHER | LOC: M PAIN 14:45 | PROVIDERS: ATTEND Anesthesiology | DX: G90.512 Complex regional pain syndrome I of left upper limb (principal); M25.512 Pain in left shoulder; M79.605 Pain in left leg; M25.552 Pain in left hip; F17.210 Nicotine dependence, cigarettes, uncomplicated; Z88.8 Allergy status to other drugs, medicaments and biological substances; Z79.899 Other long term (current) drug therapy ==

== ENCOUNTER → 2023-06-26 | Outpatient (CLI) | payer OTHER | LOC: M PAIN 16:30 | PROVIDERS: ATTEND Anesthesiology | DX: Z53.29 Procedure and treatment not carried out because of patient's decision for other reasons (principal) ==

== ENCOUNTER → 2023-06-28 | Outpatient (CLI) | payer OTHER | LOC: M PAIN 13:45 | PROVIDERS: ATTEND Anesthesiology | DX: G90.512 Complex regional pain syndrome I of left upper limb (principal); M25.512 Pain in left shoulder; M79.605 Pain in left leg; M79.601 Pain in right arm; G89.29 Other chronic pain; M25.522 Pain in left elbow; Z79.891 Long term (current) use of opiate analgesic; Z79.899 Other long term (current) drug therapy; Z88.8 Allergy status to other drugs, medicaments and biological substances ==

== ENCOUNTER → 2023-10-16 | Outpatient (CLI) | payer OTHER | LOC: M PAIN 11:00 | PROVIDERS: ATTEND Anesthesiology | DX: G90.512 Complex regional pain syndrome I of left upper limb (principal); Z79.891 Long term (current) use of opiate analgesic; M25.512 Pain in left shoulder; M79.2 Neuralgia and neuritis, unspecified; M25.552 Pain in left hip; M25.551 Pain in right hip; F17.210 Nicotine dependence, cigarettes, uncomplicated; Z79.899 Other long term (current) drug therapy; Z88.8 Allergy status to other drugs, medicaments and biological substances ==

== ENCOUNTER → 2023-11-13 | Outpatient (CLI) | payer OTHER | LOC: M PAIN 17:15 | PROVIDERS: ATTEND Anesthesiology | DX: G90.512 Complex regional pain syndrome I of left upper limb (principal); F17.210 Nicotine dependence, cigarettes, uncomplicated; Z79.891 Long term (current) use of opiate analgesic; Z88.8 Allergy status to other drugs, medicaments and biological substances ==

== ENCOUNTER → 2024-01-23 | Outpatient (CLI) | payer OTHER | LOC: M PAIN 10:15 | PROVIDERS: ATTEND Nurse Practitioner Family | DX: M79.12 Myalgia of auxiliary muscles, head and neck (principal); G89.29 Other chronic pain; R51.9 Headache, unspecified; F17.210 Nicotine dependence, cigarettes, uncomplicated; Z79.891 Long term (current) use of opiate analgesic; Z79.899 Other long term (current) drug therapy; Z79.52 Long term (current) use of systemic steroids; Z88.8 Allergy status to other drugs, medicaments and biological substances ==

== ENCOUNTER → 2024-04-24 | Outpatient (CLI) | payer OTHER ==
[~2024-04-24] MED LIST changes: +TRIAMCINOLONE ACETONIDE SUSP 40MG/ML 1ML VIAL As Ordered ONE; +diazePAM 5MG TABLET As Ordered ONE; +oxyCODONE 5MG TAB As Ordered ONE
== END ==
LOC: M PAIN 13:00
PROVIDERS: ATTEND Anesthesiology
DX: M79.18 Myalgia, other site (principal); G89.29 Other chronic pain; M25.551 Pain in right hip; M25.552 Pain in left hip; M25.522 Pain in left elbow; F17.210 Nicotine dependence, cigarettes, uncomplicated; Z79.891 Long term (current) use of opiate analgesic; Z79.899 Other long term (current) drug therapy; Z88.8 Allergy status to other drugs, medicaments and biological substances
CPT/HCPCS: 20553; J0665; J3301

== ENCOUNTER → 2024-08-10 | Outpatient (CLI) | payer OTHER ==
[~2024-08-10] MED LIST changes: +GABA-1490 PO; -GABA600T4 PO; -TRIAMCINOLONE ACETONIDE SUSP 40MG/ML 1ML VIAL As Ordered ONE; -diazePAM 5MG TABLET As Ordered ONE; -oxyCODONE 5MG TAB As Ordered ONE
== END ==
LOC: M PAIN 15:45
PROVIDERS: ATTEND Nurse Practitioner Family
DX: Z53.21 Procedure and treatment not carried out due to patient leaving prior to being seen by health care provider (principal)

== ENCOUNTER → 2024-10-08 | Outpatient (CLI) | payer OTHER | LOC: M PAIN 14:15 | PROVIDERS: ATTEND Nurse Practitioner Family | DX: G90.512 Complex regional pain syndrome I of left upper limb (principal); M79.18 Myalgia, other site; G89.29 Other chronic pain; F17.210 Nicotine dependence, cigarettes, uncomplicated; Z79.891 Long term (current) use of opiate analgesic; Z79.899 Other long term (current) drug therapy; Z79.52 Long term (current) use of systemic steroids; Z88.8 Allergy status to other drugs, medicaments and biological substances ==